=== PATIENT | female | born 2000 | race Caucasian/White ===

== ENCOUNTER → 2020-09-14 | Outpatient (CLI) | payer OTHER | LOC: KOH-I 09-13 08:30 | DX: R74.8 Abnormal levels of other serum enzymes (principal) | CPT/HCPCS: 76700 ==

== ENCOUNTER 2020-09-30 09:42 | Emergency (ER) | payer OTHER ==
[2020-09-30 10:50] LABS: HEMOGLOBIN 13.7 gm/dl (12.3-15.3); RED BLOOD COUNT 4.35 M/UL (4.00-5.10); WHITE BLOOD COUNT 7.5 K/UL (4.5-11.0)
[2020-09-30 11:08] LABS: BUN/CREATININE RATIO 6 (0-10)
== END 2020-09-30 12:28 | disposition home or self-care (01) ==
LOC: ER1 09:42
PROVIDERS: Physician Assistant
DX: B27.90 Infectious mononucleosis, unspecified without complication (principal); Z79.899 Other long term (current) drug therapy; Z20.822 Contact with and (suspected) exposure to COVID-19
CPT/HCPCS: 0240U; 71045; 80053; 81001; 85025; 86403; 87081; 87880; 99283; J7030